=== PATIENT | female | born 1950 | race Caucasian/White ===

== ENCOUNTER 2023-11-06 09:42 | Outpatient (CLI) | payer MEDICARE, MEDICAID, SELFPAY ==
--- NOTE | ~2023-11-06 | NM_ITS ---
EXAMINATION: NM hepatobiliary wo pharm DATE: 11/06/2023 13:34 INDICATION: Upper abdominal pain COMPARISON: None. TECHNIQUE: 5.0 mCi Tc-99m mebrofenin (Choletec) was administered intravenously. Scintigraphic images of the abdomen were obtained for one hour. At the 1 hour time point, the patient drank 8 oz Ensure, and imaging was continued for 60 minutes. Gallbladder ejection fraction was calculated by the technol ogist. FINDINGS: There is normal clearance of radiotracer from the blood pool. There is homogeneous tracer u ptake by the liver. Activity progresses to the bowel and gallbladder. The gallbladder ejection fract ion (GBEF) is 45%. Note that with this technique, normal GBEF >= 33%. IMPRESSION: 1. Normal hepatobiliary scan. Reviewed, dictated and finalized at location A.
== END 2023-11-06 09:43 | disposition home or self-care (01) ==
LOC: ANHIMG 09:44
PROVIDERS: PCP Internal Medicine; Visit Provider Nurse Practitioner Family
DX: R10.10 Upper abdominal pain, unspecified (principal); D64.9 Anemia, unspecified
CPT/HCPCS: 78226; A9537

== ENCOUNTER 2024-01-07 02:15 | Day surgery (SDC) | payer MEDICARE, MEDICAID, SELFPAY ==
[2023-12-15 09:05] VITALS: BMI 21.5
--- NOTE | 2024-01-06 14:55 | P.PNAN_ITS ---
Anes - Initial Pre Proc Eval Procedure: Operation Date: 01/07/24 10:00 Proposed Procedures p Esophagogastroduodenoscopy & Colonoscopy - Fermin Villegas MD Date/Time: 01/06/24 14:55 Surgeon: Fermin Villegas MD Pre Op Diagnosis: Dysphagia, Melena, Anemia, Diarrhea Patient Data Age: 73 Gender: F Height: 1.52 m Weight: 50 kg Allergies Allergy/AdvReac Type Severity Reaction Status Date / Time erythromycin base Allergy Severe Swelling Verified 12/26/23 13:14 of Lip/Tongue/Throat Latex, Natural Rubber Allergy Severe Redness of Verified 12/26/23 13:14 Skin morphine Allergy Severe Headache Verified 12/26/23 13:14 Penicillins Allergy Severe Swelling Verified 12/26/23 13:14 of Lip/Tongue/Throat povidone-iodine Allergy Severe Redness of Verified 12/26/23 13:14 [From Betadine] Skin Sulfa (Sulfonamide Allergy Severe Vomiting Verified 12/26/23 13:14 Antibiotics) tramadol [From Ultram] Allergy Severe Hives Verified 12/26/23 13:14 adhesive tape AdvReac Intermediate Redness of Verified 12/26/23 13:14 Skin Home Medications Medication Instructions Recorded Confirmed Type cyanocobalamin (vitamin B-12) 500 250 mcg PO DAILY 09/04/22 12/29/23 History mcg tablet cyclobenzaprine 10 mg tablet 10 mg PO TID PRN muscle spasms 09/04/22 12/29/23 History hydrochlorothiazide 12.5 mg tablet 12.5 mg PO DAILY 09/04/22 12/29/23 History hydrocodone 5 mg-acetaminophen 325 1 tablet PO TID PRN Pain 09/04/22 12/29/23 History mg tablet omeprazole 40 mg capsule,delayed 40 mg PO DAILY 09/04/22 12/29/23 History release magnesium oxide 400 mg PO BID 11/27/23 12/29/23 History atorvastatin 20 mg tablet 20 mg PO DAILY 12/15/23 12/29/23 History dicyclomine 10 mg capsule 10 mg PO QID PRN cramping 12/15/23 12/29/23 History metoprolol succinate 25 mg 25 mg PO DAILY 12/15/23 12/29/23 History tablet,extended release 24 hr Patient hx anesthesia problems: none Family hx anesthesia problems: none Results Review: All pre-operative results and documents have been reviewed as part of the pre- operative evaluation. COUNTS INCLUDE 234 BEDS AT THE [facility] Past Medical History Medical History Dizziness GERD (gastroesophageal reflux disease) Glaucoma H/O cataract (10/20/15) surgery 10/20/2015 and 12/2015 Hernia Herniated disc, cervical High cholesterol History of hypertension Left breast mass Multiple thyroid nodules Osteopenia Raynaud's disease Rosacea Skin abnormalities precancerous cells removed from face Skin abnormalities DSAP Spinal stenosis Surgical History Surgical History H/O eye surgery (01/19/10) right eye - Glaucoma H/O lumpectomy lump removed under right arm H/O: hysterectomy [facility] RSO History of carpal tunnel surgery History of gynecological procedure (04/21/06) Bowel surgery / LSO History of tonsillectomy Family History Family History Other Cancer Diabetes mellitus Social History Social History Smoking packs per day: 0.5 Smoking cigarettes per day: 10.0 Years smoked: 50 Smoking pack-years: 25.00 Smoking status: Current every day smoker Tobacco type: cigarettes Second hand tobacco smoke exposure: No Alcohol intake: never Substance use: never Substance use type: does not use Do You Feel Safe in your Home?: Yes Lack of Transportation: No Lack of Food: Never True Current Housing: I Have Housing Concerned About Future Housing: No Difficulty Paying Gas/Electric Bills: No Difficulty Paying for Meds: No Education: High School Diploma/GED Difficulty w/ Childcare or Family Care: No Living arrangements: alone Additional living arrangements comments: Occupation/Education: retired Additional occupation/education comments: disability Gender identity (if verbalized by the patient): Female Sexual Orientation (if Verbalized by the Patient): Straight or Heterosexual Spiritual care concerns: No Anes - Eval Final PreProcedure Day of Procedure 01/06/24 14:55 Patient weight: normal Heart: regular rate and rhythm Lungs: clear to auscultation Airway: Mallampati scale class II Neurological: alert and oriented Last oral intake: >/= 8 hours ASA classification: II Emergent: no Anesthetic plan: proceed Anesthesia type and monitoring: general GIVS and standard monitoring Results Review: All pre-operative results and documents have been reviewed as part of the pre- operative evaluation. Informed Consent: The patient's anesthetic plan and its attendant risks and benefits were discussed with the patient/family/POA. Questions were solicited and answers provided to the satisfaction of the patient/family/POA.
[2024-01-07 08:58] VITALS: BP 164/67; PULSE 96; RESP 18; TEMP 36.2; O2SAT 97
[2024-01-07] MEDS: LACTATED RINGERS 1,000 ML 150 ML IV CONT (09:12)
--- NOTE | 2024-01-07 09:45 | WPDHPUPDATE1 ---
History and Physical Update Update Date/Time: 01/07/24 09:45 History and Physical has been reviewed, including an updated exam of the patient. There are NO changes in the patient's condition. Risks, benefits, and alternatives have been discussed and questions answered. Patient agrees to proceed with procedure.
--- NOTE | 2024-01-07 10:04 | SUR.OPER ---
egd start 53 end 58 colonoscopy start 1004
--- NOTE | 2024-01-07 10:06 | S_PTH ---
PATIENT: Odalys Boyd LOC: [facility]#:[id number] AGE/SX: 73/F ROOM: RE01/07/[address]: Fermin Villegas MD : 1950 BED: DIS: 01/07/2024 SPEC #: [id number] RECD: 01/07/24 10:48 STATUS: RALPH REJenny #: [id number] MARIJA: 01/07/24 10:[address]: Fermin Villegas DEPT: [facility] Surgical RECD BY: Reta Millan ENTERED: 01/07/24 10:49 SP TYPE: Surgical OTHR DR: Hiro DozierMD Tissues: A - Gastric Biopsy B - Esophageal Biopsy C - Colon Polypectomy D - Colon Polypectomy Procedures: Hematoxylin and Eosin Stain Gross and Microscopic Level 4
[2024-01-07 10:20] VITALS: BP 130/67; PULSE 73; RESP 24; O2SAT 100
[2024-01-07 10:30] VITALS: BP 139/72; PULSE 75; RESP 21; O2SAT 100
[2024-01-07 10:40] VITALS: BP 166/82; PULSE 72; RESP 17; O2SAT 97
== END 2024-01-07 10:48 | disposition home or self-care (01) ==
PROVIDERS: PCP Internal Medicine; Referring Provider Nurse Practitioner Family; Visit Provider Internal Medicine Gastroenterology
PROC: 0DJ08ZZ Inspection of Upper Intestinal Tract, Via Natural or Artificial Opening Endoscopic (ICD-10-PCS; CPT 45378; principal; 2024-01-07 10:00)
DX: D12.4 Benign neoplasm of descending colon (principal); D12.3 Benign neoplasm of transverse colon; K29.50 Unspecified chronic gastritis without bleeding; D50.8 Other iron deficiency anemias; K21.9 Gastro-esophageal reflux disease without esophagitis; I10 Essential (primary) hypertension; I73.00 Raynaud's syndrome without gangrene; E78.00 Pure hypercholesterolemia, unspecified; M85.88 Other specified disorders of bone density and structure, other site; M50.20 Other cervical disc displacement, unspecified cervical region; M48.00 Spinal stenosis, site unspecified; F17.210 Nicotine dependence, cigarettes, uncomplicated; Z79.891 Long term (current) use of opiate analgesic; Z98.890 Other specified postprocedural states; Z80.9 Family history of malignant neoplasm, unspecified
CPT/HCPCS: 43239; 43450; 45385; 88305; J2003; J2704; J7120